=== PATIENT | male | born 1955 | race Caucasian/White ===

== ENCOUNTER → 2021-12-07 13:46 | Outpatient (REF) | payer OTHER, SELFPAY ==
--- NOTE | 2021-12-07 14:00 | CA_ITS ---
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 Normal LV systolic function with grade I diastolic dysfunction 2. Normal cardiac valvular Dopplers 3. Normal RVSP 4. No pericardial effusion Findings Procedure Information Contrast agent, definity, is being given per protocol without apparent complications. Left Ventricle Normal left ventricular size, thickness, and systolic function. The visually estimated ejection fraction is between 55-60%. Spectral Doppler is indicative of an impaired relaxation filling pattern. E/E prime ratio is <8, consistent with normal filling pressures. Evidence suggests grade I (mild) diastolic dysfunction. Right Ventricle Normal right ventricular cavity size and systolic function. Atria The left atrium is normal in size. There is no evidence of interatrial shunt. The right atrium was not well visualized. Aortic Valve The aortic valve structure and function is likely normal. There is no aortic valve stenosis. There is no aortic valve regurgitation. Mitral Valve Normal mitral valve structure and function. There is trace mitral valve regurgitation. There is no mitral valve stenosis. Pulmonic Valve The pulmonic valve was not well visualized. Tricuspid Valve Likely normal tricuspid valve structure and function. There is trace tricuspid valve regurgitation. The right ventricular systolic pressure is normal. The right ventricular systolic pressure is 20 mmHg. Normal right atrial pressure. There is no evidence of pulmonary hypertension. Great Vessels The pulmonary artery was not well visualized. There is mild dilatation of the ascending aorta measuring 4.10 cm. Venous The inferior vena cava is normal in size and collapses greater than 50% with inspiration. Pericardium/Pleural There is no evidence of pericardial effusion. Prior Study Comparison No prior study available for comparison. Measurements 2D Linear Measurements IVSd: 1.35 0.6-0.9/0.6-1.0 cm LVIDd: 5.01 3.9-5.3/4.2-5.9 cm LVIDd Index: 2.06 2.4-3.2/2.2-3.1 cm/m2 LVIDs: 3.14 2.0-3.6 cm LVPWd: 1.14 0.7-1.1 cm LA Diam: 4.90 2.7-3.8/3.0-4.0 cm LAIDs Index: 2.02 1.5-2.3 cm/m2 LV Mass: 307.97 67-162/88-224 g LV Mass Index: 126.74 43-95/49-115 g/m2 LVOT Diam: 2.50 3.0+(-)1.3 cm 2D Systolic Function EF 4C: 55.70 >55% EF 2C: 63.10 >55% EF BiP: 59.80 >55% Mitral Valve MV Pk E: 0.78 MV PK A: 0.88 MV Decel Time: 238.00 E/A: 0.90 E'Lateral: 6.09 E'Medial: 7.07 E/E' Med: 11.00 E/E' Lat: 12.80 PHT: 70.00 MVA PHT: 3.14 Decel [place]: 3.27 Aortic Valve AoV Pk Pj: 1.62 AoV Mn Pj: 1.11 AoV VTI: 0.28 AoV Pk Grad: 10.00 Aov Mn Grad: 6.00 MACK Cont.VTI: 3.06 LVOT LVOT Pk Pj: 0.90 LVOT Mn Pj: 0.62 LVOT VTI: 0.18 LVOT Pk Grad: 3.00 LVOT Mn Grad: 2.00 LVOT Diam: 2.50 LVOT Area: 4.91 Diastolic Function MV Pk E: 0.78 MV Pk A: 0.88 E/A: 0.90 E'Medial: 7.07 E/E' Med: 11.00 E' Laterial: 6.09 E/E' Lat: 12.80 Right Ventricle TAPSE (mm): 18.60 TVS' Pj: 13.50 Tricuspid Valve TR Pk Pj: 2.06 TR Pk Grad: 17.00 RA Press: 3.00 RVSP: 20.00 Great Vessels Aorta Sinus of Valsalva: 4.13 2.0-3.[address] [place]: 3.17 1.7-3.4 cm Ao Asc: 4.10 2.1-3.4 cm Ao Arch: 2.90 Updated in Other Vendor System with Status of Final Victor Manuel Live MD electronically signed on 12/07/2021 6:05:24 PM with status of Final
== END ==
LOC: HO.CARD 13:46
PROVIDERS: PCP Internal Medicine; Visit Provider Physician Assistant
DX: R06.01 Orthopnea (principal)
CPT/HCPCS: 93306; Q9957

== ENCOUNTER 2021-12-18 15:47 | Outpatient (REF) | payer OTHER, SELFPAY ==
--- NOTE | ~2021-12-18 | CT_ITS ---
EXAMINATION: CT CHEST WITHOUT CONTRAST CLINICAL INFORMATION: Orthopnea COMPARISON: None TECHNIQUE: Multidetector volumetric CT imaging of the chest was done. Axial MIP volume rendering provided. Sagittal and coronal reformatted images were obtained. This CT examination was performed using dose optimization techniques as appropriate, variously including the following: *Automated exposure control *Adjustment of mA and/or kV according to patient size (this includes techniques or standardized protocols for targeted exams where dose is matched to indication/reason for exam; i.e. extremities or head) *Use of iterative reconstruction technique DLP: 314 mGy-cm FINDINGS: LUNGS: The lungs are clear with no evidence of inflammation or nodules. MEDIASTINUM: The heart size is normal. There is coronary artery calcification. There is no pericardial effusion. Thoracic aorta is normal in caliber. There are small mediastinal lymph nodes. No enlarged lymph nodes are seen.. PLEURA: There is no pleural effusion. No pleural mass or thickening. AXILLA: No lymphadenopathy. UPPER ABDOMEN: The liver is slightly low in attenuation suggestive of fatty infiltration. There is a 1 x 2 cm left adrenal nodule. 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 OSSEOUS STRUCTURES: There are degenerative changes of the spine. CT/CT chest wo con IMPRESSION: Coronary artery calcification otherwise unremarkable chest CT. Fatty liver. 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 Fleischner guidelines were followed.
== END 2021-12-18 15:48 | disposition home or self-care (01) ==
LOC: HO.CT 15:47
PROVIDERS: Visit Provider Physician Assistant
DX: R06.01 Orthopnea (principal)
CPT/HCPCS: 71250

== ENCOUNTER 2023-04-16 12:10 | Outpatient (REF) | payer OTHER, SELFPAY | END 2023-04-16 12:11 | disposition home or self-care (01) | LOC: HO.MANLDS 12:10 | PROVIDERS: Visit Provider Physician Assistant | DX: Z91.013 Allergy to seafood (principal) | CPT/HCPCS: 36415; 86003 ==